=== PATIENT | male | born 1960 | race Hispanic/Latino ===

== ENCOUNTER 2024-06-10 21:17 | Emergency (ER) | payer BC ==
[~2024-06-10] VITALS: Ht 185.4 cm; Wt 97.5 kg
--- NOTE | 2024-06-10 21:25 | NUR ---
UA CUP PROVIDED
--- NOTE | 2024-06-10 21:32 | ERN ---
ED Note History of Present Illness Stated Complaint: LOWER BACK PAIN Time Seen by MD: 21:18 Time Seen by Midlevel: 21:20 Dictation: Mr. Jackson is a 64 year old gentleman with no reported chronic health issues known to the emergency department this evening for evaluation of right flank pain. He states 20 minutes ago he was playing pool and he had sudden onset of a right low back/flank pain. He rates the pain 4/10. He states there is no worsening of pain with position change/movement. He states he had a similar episode a few days ago albeit less severe. At that time he took Tylenol and symptoms resolved. He denies having fever, chills, shortness of breath, cough, chest pain, palpitations, abdominal pain, nausea, vomiting, diarrhea, dysuria, hematuria, headache or dizziness. He does state he has a history of a lung surgery; states they removed lower lobe due to trauma/blood clot. 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 EYES: Patient denies any visual symptoms. EARS, NOSE, AND THROAT: No difficulties with hearing. No symptoms of rhinitis or sore throat. CARDIOVASCULAR: Patient denies chest pains, palpitations, orthopnea and paroxysmal nocturnal dyspnea. RESPIRATORY: No dyspnea on exertion, no wheezing or cough. GI: No nausea, vomiting, diarrhea, constipation, abdominal pain, hematochezia or melena. : No urinary hesitancy or dribbling. No nocturia or urinary frequency. No abnormal urethral discharge. Denies hematuria. Reports right flank pain MUSCULOSKELETAL: Reports right low back pain NEUROLOGIC: No chronic headaches, no seizures. Patient denies numbness, tingling or weakness. PSYCHIATRIC: Patient denies problems with mood disturbance. No problems with anxiety. ENDOCRINE: No excessive urination or excessive thirst. DERMATOLOGIC: Patient denies any rashes or skin changes. Initial Vital Sign VS Vital Signs Date Time Temp Pulse Resp B/P (MAP) Pulse Ox O2 Delivery O2 Flow Rate FiO2 06/10/24 21:17 97.9 70 20 134/97 98 Room Air 06/10/24 21:47 0 21 Physical Exam Dictation Vital signs: Reviewed. Afebrile Constitutional: No acute distress. Non-toxic appearing. Head/Face: Normocephalic, atraumatic. Eyes: Periorbital areas with no swelling, redness, or edema. Lids and lashes are normal. Conjunctival injection is absent. Sclera anicteric. Pupils equal, round, reactive to light. ENT: Pinnas intact and no signs of trauma or erythema. Ear canals clear and no discharge. TMs no erythema. No nasal discharge or bleeding noted. Oropharynx with no exudate, redness, swelling, masses, exudates, or evidence of obstruction. Uvula midline. Mucous membranes moist. Neck: Trachea midline, no masses palpated, and no cervical lymphadenopathy. No swelling. Supple, full range of motion. Chest/Axilla: No tenderness, no crepitus, no paradoxical movement, no retractions.BP 134/97 Respiratory: Respirations even and unlabored. Lung sounds clear; no wheezes, rales or rhonchi. Gastrointestinal: Inspection is normal. No distention is appreciated. Bowel sounds are normal. No mass or organomegaly . There is no tenderness. No rebound. No rigidity. No voluntary or involuntary guarding. No Soni's sign. : + Right CVA tenderness. Pain 4/10. Unable to urinate at this time. Neurological: Normal speech, gross motor function intact, gross sensory function intact. No focal weakness/Paresthesia. Musculoskeletal/Extremities: All extremities have full range of motion, no pain or tenderness on palpation. Symmetric pulses. Integumentary: Intact. Skin is normal color, warm and dry. Cap refill less than 2 seconds. Results (Laboratory/Radiology) Laboratory/Radiology Laboratory Tests Test 06/10/24 21:35 06/10/24 21:42 White Blood Count 6.9 K/uL (4.8-10.8) Red Blood Count 5.24 MIL/uL (4.50-6.20) Hemoglobin 14.8 g/dL (14.0-18.0) Hematocrit 45.2 % (42-54) Mean Corpuscular Volume 86.3 fL (79-99) Mean Corpuscular Hemoglobin 28.2 pg (27.0-33.0) Mean Corpuscular Hemoglobin Concent 32.7 g/dL (32.0-36.0) Red Cell Distribution Width 12.8 % (11.0-15.5) Platelet Count 253 K/uL (130-400) Mean Platelet Volume 10.2 fL (7.5-10.5) Immature Granulocyte % (Auto) 0.3 % (0-1) Neutrophils (%) (Auto) 40.7 % (40.0-77.0) Lymphocytes (%) (Auto) 46.4 % (21.0-51.0) Monocytes (%) (Auto) 9.0 % (3.0-13.0) Eosinophils (%) (Auto) 2.9 % (0.0-8.0) Basophils (%) (Auto) 0.7 % (0.0-5.0) Neutrophils # (Auto) 2.8 K/uL (1.8-7.7) Lymphocytes # (Auto) 3.2 K/uL (1.0-4.8) Monocytes # (Auto) 0.6 K/uL (0.1-1.0) Eosinophils # (Auto) 0.20 K/uL (0.00-0.70) Basophils # (Auto) 0.05 K/uL (0.00-0.20) Absolute Immature Granulocyte (auto 0.02 K/uL (0-1) Nucleated Red Blood Cells 0.0 % (0.0-0.19) Sodium Level 136 mmol/L (136-145) Potassium Level 3.7 mmol/L (3.5-5.1) Chloride Level 99 mmol/L (101-111) L Carbon Dioxide Level 30 mmol/L (21-32) Blood Urea Nitrogen 16 mg/dL (7-18) Creatinine 1.1 mg/dL (0.5-1.3) Glomerular Filtration Rate Calc 75 mL/min (>90) Random Glucose 116 mg/dL (70-105) H Total Calcium 8.4 mg/dL (8.5-10.1) L Urine Color LIGHT-YELLOW (YELLOW) Urine Appearance CLOUDY (CLEAR) H Urine pH 5.0 (5.0-8.0) Urine Specific Fidelity 1.023 (1.001-1.031) Urine Protein 10 mg/dL (NEGATIVE) H Urine Glucose (UA) NEGATIVE mg/dL (NEGATIVE) Urine Ketones NEGATIVE mg/dL (NEGATIVE) Urine Occult Blood LARGE (NEGATIVE) H Urine Nitrate NEGATIVE (NEGATIVE) Urine Bilirubin NEGATIVE mg/dL (NEGATIVE) Urine Urobilinogen 0.2 mg/dL (0.2-1.0) Urine Leukocyte Esterase NEGATIVE James/uL Urine RBC TNTC /HPF (0-1) H Urine WBC None /HPF (0-1) Urine Bacteria None /HPF (None Seen) Labs Reviewed?: Yes CT Scan Comment: PATIENT: MARGARET JACKSON MR#: [id number] : 1960 SEX: M AGE: 64 LOCATION: [facility] ORDER 26 STATUS: [facility] REPORT#: [id number] SERVICE 25 REASON: right flank pain, possible kidney stone ORDERING PHYSICIAN: PEDRO PABLO SOUSA NP PROCEDURE: ABD PEL WO - CT ABDOMEN/PELVIS W/O CONTRAST CT ABDOMEN/PELVIS W/O CONTRAST HISTORY: Right flank pain there are bibasilar linear atelectasis. COMPARISON: None TECHNIQUE: Multiple sequential axial images of the abdomen and pelvis were obtained from the dome of the diaphragm through symphysis pubis. Patient was not given contrast through intravenous route. Oral contrast was not given. FINDINGS: No pleural effusion is seen bilaterally. There is no evidence of parenchymal disease or pulmonary nodule of the visualized lower lungs. Degenerative changes of the thoracolumbar spine are present. The heart is not enlarged. Liver measures 19 cm. The liver, spleen, adrenal glands and pancreas are unremarkable. No hydronephrosis is seen on the left. There is mild right hydronephrosis with 7 mm renal stone in the right proximal mid ureter. There is diverticulosis. Fecal material is seen in the colon. There are normal size retroperitoneal and mesenteric lymph nodes. No ascites is seen. Atherosclerotic changes are present. Appendix is not well seen limiting evaluation. Pelvic sidewalls are symmetric bilaterally. Bladder is poorly distended. IMPRESSION: 1. There is mild right hydronephrosis with 7 mm renal stone in the right proximal mid ureter. There is diverticulosis. CT was performed with one or more following dose reduction techniques: automated exposure control, adjustment of the mA and kv according to patient's size, or use of a iterative reconstruction technique. DICTATED BY: SHERRI HELTON MD DATE: 06/10/242221 ELECTRONICALLY SIGNED BY: SHERRI HELTON MD DATE: 06/10/242230 ED Course ED Course Orders Procedure Category Date Status Time Urinalysis Profile LAB 06/10/24 Complete : Cbc With Differential LAB 06/10/24 Complete : Basic Metabolic Panel LAB 06/10/24 Complete 21: Ct Abdomen/Pelvis W/O CT 06/10/24 Resulted Contrast 21: Ondansetron Odt 4mg PHA 06/10/24 Complete Tab (Zofran 4mg Odt) 21:30 Hydrocodone/Apap PHA 06/10/24 Complete 5/325 ([place] 5/325mg) 21:30 Current Medications Medications (Trade) Dose Ordered Sig/Lenny Route PRN Reason Start Time Stop Time Status Last Admin Dose Admin Acetaminophen/ Hydrocodone Bitart (NORco 5/325MG) 1 tab ONCE ONCE PO 06/10/24 21:30 06/10/24 21:32 DC 06/10/24 22:49 Ondansetron HCl (zoFRAN 4MG ODT) 4 mg ONCE ONCE SL 06/10/24 21:30 06/10/24 21:32 DC 06/10/24 22:49 Vital Signs Date Time Temp Pulse Resp B/P (MAP) Pulse Ox O2 Delivery O2 Flow Rate FiO2 06/10/24 21:47 97.9 70 20 134/97 98 Room Air* 0 21 06/10/24 21:17 97.9 70 20 134/97 98 Room Air He arrived to the emergency department with right flank pain positive CVA tenderness, laboratory findings as noted below. No elevation of WBCs. No electrolyte derangement. UA positive for blood and protein. CT scan of the abdomen and pelvis revealed 7 mm stone right proximal mid ureter with mild hydronephrosis. He states pain is mild and declines admission to hospital. He received doses Flomax, Zofran, and [place]. He was advised he will need to follow up with urologist. He was provided with urine strainer. Medical Decision Making MDM MDM: Differential diagnosis: UTI, pyelonephritis, kidney stone Rationale: Tests considered and ordered secondary to shared decision making include: Lab, CT Previous outside records reviewed: Old ER visits. Risk of complication and/or morbidity or mortality of patient management: None Medications-Per medication reconciliation Need for hospitalization: Patient does not meet criteria for hospitalization. Need for emergency major/minor surgery: No There are no social concerns with this patient. Prescription drug management: Flomax, ibuprofen, Zofran Prescriptions will include symptomatic care Patient's prior external medical records from other ER visits were reviewed by me as indicated. Prior testing and results from previous visits were reviewed. Prior tests were taken into account with medical decision making and resource utilization, independent historian/historians were used to obtain complete medical history. I independently interpreted the test that were performed, results were reviewed by me and considered findings on radiology if ordered. Medical management and examination interpretation discussions were had by me with other qualified healthcare professionals as indicated for the patient's care. DX & DISP Disposition: Discharge Departure Impression: Primary Impression: Kidney stone on right side Additional Impression: Hydronephrosis Condition: Stable Scripts Ondansetron (Ondansetron Odt) 4 Mg Tab.rapdis 4 MG PO Q6HPRN PRN for nausea, #15 TAB 0 Refills Prov: PEDRO PABLO SOUSA NP 06/10/24 Ibuprofen (Ibuprofen) 600 Mg Tablet 600 MG PO Q6H PRN for PAIN, #15 TAB 0 Refills Prov: PEDRO PABLO SOUSA NP 06/10/24 Tamsulosin HCl (Flomax) 0.4 Mg Cap.er.24h 0.4 MG PO DAILY PRN for francisca, #10 CAPSULE.DR 0 Refills Prov: PEDRO PABLO SOUSA NP 06/10/24 Additional Instructions: Rest. Drink plenty of fluids. Take Flomax 0.4 mg daily. May take ibuprofen every 6 hours as needed for discomfort. Zofran sublingual every 6 hours as needed for nausea. Strain all urine. You will need to follow up with urologist; call in a.m. for appointment. Return to the emergency department for any worsening of symptoms or concerns. Referrals: RAE BAUTISTA MD Time of Disposition: 22:56 PEDRO PABLO SOUSA NP Jun 10, 2024 21:32
[2024-06-10 21:47] VITALS: BP 134/97; PULSE 70; RESP 20; TEMP 97.8; O2SAT 98
[2024-06-10 21:48] LABS: BASOPHILS # (AUTO) 0.05 K/uL (0.00-0.20); BASOPHILS % (AUTO) 0.7 % (0.0-5.0); EOSINOPHILS % (AUTO) 2.9 % (0.0-8.0); HEMATOCRIT 45.2 % (42-54); IMMATURE GRANULOCYTE ABSOLUTE 0.02 K/uL (0-1); LYMPHOCYTES # (AUTO) 3.2 K/uL (1.0-4.8); LYMPHOCYTES % (AUTO) 46.4 % (21.0-51.0); MEAN CORPUSCULAR HEMOGLOBIN 28.2 pg (27.0-33.0); MEAN CORPUSCULAR HGB CONC 32.7 g/dL (32.0-36.0); MEAN CORPUSCULAR VOLUME 86.3 fL (79-99); MONOCYTES # (AUTO) 0.6 K/uL (0.1-1.0); NEUTROPHILS # (AUTO) 2.8 K/uL (1.8-7.7); NEUTROPHILS % (AUTO) 40.7 % (40.0-77.0); PLATELET COUNT (AUTO) 253 K/uL (130-400); RED BLOOD CELL COUNT(AUTO) 5.24 MIL/uL (4.50-6.20); RED CELL DISTRIBUTION WIDTH 12.8 % (11.0-15.5); WHITE BLOOD COUNT (AUTO) 6.9 K/uL (4.8-10.8)
[2024-06-10 21:50] LABS: APPEARANCE,URINE CLOUDY (CLEAR); BILIRUBIN,URINE NEGATIVE (NEGATIVE); COLOR,URINE LIGHT-YELLOW (YELLOW); GLUCOSE, URINE (UA) NEGATIVE (NEGATIVE); KETONES,URINE NEGATIVE (NEGATIVE); LEUKOCYTE ESTERASE ,URINE NEGATIVE Leu/uL (NEGATIVE); NITRATE,URINE NEGATIVE (NEGATIVE); OCCULT BLOOD,URINE LARGE (NEGATIVE); PROTEIN,URINE 10 mg/dL (NEGATIVE); UROBILINOGEN,URINE 0.2 mg/dL (0.2-1.0)
[2024-06-10 21:52] LABS: ADD UA MICROSCOPIC YES
[2024-06-10 21:53] LABS: MUCUS,URINE RARE LPF (None Seen); RBC,URINE TNTC /HPF (0-1)
[2024-06-10 21:58] LABS: CREATININE 1.1 mg/dL (0.5-1.3); POTASSIUM 3.7 mmol/L (3.5-5.1)
[2024-06-10] MEDS: HYDROcodone/APAP 5/325 1 TAB TABLET PO ONE (22:19)
[2024-06-10] MEDS: ondanSETRON ODT 4MG TAB SL ONE (22:19)
--- NOTE | 2024-06-10 22:31 | HMCIMG ---
CT ABDOMEN/PELVIS W/O CONTRAST HISTORY: Right flank pain there are bibasilar linear atelectasis. COMPARISON: None TECHNIQUE: Multiple sequential axial images of the abdomen and pelvis were obtained from the dome of the diaphragm through symphysis pubis. Patient was not given contrast through intravenous route. Oral contrast was not given. FINDINGS: No pleural effusion is seen bilaterally. There is no evidence of parenchymal disease or pulmonary nodule of the visualized lower lungs. Degenerative changes of the thoracolumbar spine are present. The heart is not enlarged. Liver measures 19 cm. The liver, spleen, adrenal glands and pancreas are unremarkable. No hydronephrosis is seen on the left. There is mild right hydronephrosis with 7 mm renal stone in the right proximal mid ureter. There is diverticulosis. Fecal material is seen in the colon. There are normal size retroperitoneal and mesenteric lymph nodes. No ascites is seen. Atherosclerotic changes are present. Appendix is not well seen limiting evaluation. Pelvic sidewalls are symmetric bilaterally. Bladder is poorly distended. IMPRESSION: 1. There is mild right hydronephrosis with 7 mm renal stone in the right proximal mid ureter. There is diverticulosis. CT was performed with one or more following dose reduction techniques: automated exposure control, adjustment of the mA and kv according to patient's size, or use of a iterative reconstruction technique.
[2024-06-10] MEDS ORDERED: IBUP-2070 PO (22:55)
[2024-06-10] MEDS ORDERED: TAMS-1 PO (22:55)
[2024-06-10] MEDS ORDERED: ONDA-243 PO (22:55)
[2024-06-10] MEDS: tamSULOsin HCL 0.4 MG CAP.ER.24H PO ONE (22:56)
== END 2024-06-10 22:58 | disposition home or self-care (01) ==
LOC: EDH 21:17
DX: N13.2 Hydronephrosis with renal and ureteral calculous obstruction (principal); Z88.0 Allergy status to penicillin; Z88.5 Allergy status to narcotic agent; Z88.6 Allergy status to analgesic agent
CPT/HCPCS: 36415; 74176; 80048; 81001; 85025; 99284

== ENCOUNTER 2024-06-26 19:57 | Emergency (ER) | payer SELFPAY ==
[~2024-06-26] VITALS: Ht 185.4 cm; Wt 93.0 kg
[~2024-06-26 19:57] MED LIST: IBUP-2070 PO; ONDA-243 PO; TAMS-55 PO
--- NOTE | 2024-06-26 20:06 | NUR ---
UA CUP PROVIDED
[2024-06-26] MEDS: ondanSETRON 4MG INJ IVP ONE (20:47)
[2024-06-26] MEDS: 0.9%NACL 1000ML 1,000 ML IV ONE (20:47)
[2024-06-26] MEDS: morPHINE 4 MG SYG IVP ONE (20:48)
[2024-06-26 20:52] LABS: BASOPHILS # (AUTO) 0.05 K/uL (0.00-0.20); BASOPHILS % (AUTO) 0.6 % (0.0-5.0); EOSINOPHILS # (AUTO) 0.14 K/uL (0.00-0.70); EOSINOPHILS % (AUTO) 1.7 % (0.0-8.0); HEMATOCRIT 47.4 % (42-54); IMMATURE GRANULOCYTE ABSOLUTE 0.02 K/uL (0-1); LYMPHOCYTES # (AUTO) 2.6 K/uL (1.0-4.8); LYMPHOCYTES % (AUTO) 32.6 % (21.0-51.0); MEAN CORPUSCULAR HEMOGLOBIN 28.6 pg (27.0-33.0); MEAN CORPUSCULAR HGB CONC 33.1 g/dL (32.0-36.0); MEAN CORPUSCULAR VOLUME 86.3 fL (79-99); MONOCYTES # (AUTO) 0.6 K/uL (0.1-1.0); MONOCYTES % (AUTO) 7.4 % (3.0-13.0); NEUTROPHILS # (AUTO) 4.6 K/uL (1.8-7.7); NEUTROPHILS % (AUTO) 57.5 % (40.0-77.0); PLATELET COUNT (AUTO) 232 K/uL (130-400); RED BLOOD CELL COUNT(AUTO) 5.49 MIL/uL (4.50-6.20); RED CELL DISTRIBUTION WIDTH 12.9 % (11.0-15.5)
[2024-06-26 20:54] LABS: APPEARANCE,URINE CLEAR (CLEAR); BILIRUBIN,URINE NEGATIVE (NEGATIVE); COLOR,URINE YELLOW (YELLOW); GLUCOSE, URINE (UA) NEGATIVE (NEGATIVE); KETONES,URINE NEGATIVE (NEGATIVE); LEUKOCYTE ESTERASE ,URINE NEGATIVE Leu/uL (NEGATIVE); NITRATE,URINE NEGATIVE (NEGATIVE); OCCULT BLOOD,URINE SMALL (NEGATIVE); PROTEIN,URINE 30 mg/dL (NEGATIVE)
[2024-06-26 20:59] LABS: CREATININE 1.4 mg/dL (0.5-1.3); POTASSIUM 3.9 mmol/L (3.5-5.1)
[2024-06-26 21:01] LABS: ADD UA MICROSCOPIC YES
[2024-06-26 21:11] LABS: MUCUS,URINE RARE LPF (None Seen); OTHER CASTS, URINE 1 /LPF (None Seen); SQUAMOUS EPITHELIAL CELL,UR RARE /HPF (0-2)
[2024-06-26] MEDS: morPHINE 4 MG SYG ONE (21:13)
[2024-06-26 21:24] VITALS: TEMP 98.1
--- NOTE | 2024-06-26 21:57 | HMCIMG ---
CT ABDOMEN/PELVIS W/O CONTRAST CLINICAL HISTORY: right flank pain COMPARISON: None TECHNIQUE: Sequential axial images of abdomen and pelvis without contrast and with sagittal and coronal reconstructions. CT was performed with one or more of the following dose reduction techniques: automated exposure control, adjustment of the mA and/or kV according to patient size, or use of iterative reconstruction technique FINDINGS: There is mild dependent atelectasis lung bases. The liver spleen gallbladder pancreas and adrenal glands and left kidney are unremarkable. There is minimal right hydroureteronephrosis secondary to a right ureterovesicular junction 3 mm calculus. There is no identified bowel junction. There are multiple sigmoid colon diverticuli with no acute inflammatory changes. There is no free air or free fluid. There is no bulky abdominal or retroperitoneal lymphadenopathy. The prostate gland is unremarkable. The bony structures demonstrate mild diffuse degenerative change of the spine is mild calcified atherosclerotic vascular disease of the aorta. IMPRESSION: Minimal right hydroureteronephrosis secondary to a 3 mm right ureterovesicular junction calculus. Severe sigmoid diverticulosis.
[2024-06-26] MEDS: morPHINE 2 MG SYG IVP ONE (22:18)
[2024-06-26 22:40] VITALS: BP 142/71; PULSE 74; RESP 16; O2SAT 97
[2024-06-26] MEDS ORDERED: TAMS-55 PO (22:49)
[2024-06-26] MEDS ORDERED: HYDR-4060 PO (22:49)
--- NOTE | 2024-06-26 22:50 | ERN ---
ED Note History of Present Illness Stated Complaint: BACK PAIN Chief Complaint: Flank Pain Time Seen by MD: 20:01 Time Seen by Midlevel: 20:01 Dictation: The patient is a 64-year-old male with a history of kidney stones who presents to the emergency department with complaints of right flank pain onset today. Patient denies any nausea, vomiting, diarrhea or fevers. Patient reports he was seen here sent him last month and was diagnosed with kidney stones. Has not follow up with Urology. Patient was not aware that he was supposed to follow up. Finished a dose of Flomax. Allergies: Coded Allergies: Penicillins (Unverified Allergy, Unknown, 06/10/24) aspirin (Unverified Allergy, Unknown, 06/10/24) codeine (Unverified Allergy, Unknown, 06/10/24) Home Meds Active Scripts Hydrocodone/Acetaminophen (Hydrocodon-Acetaminophen 5-325) 5 Mg-325 Mg Tablet, 1 TAB PO [id number] PRN for pain for 5 Days, #10 TAB 0 Refills Prov:ZULEIMA BRIGHT 06/26/24 Tamsulosin HCl (Flomax) 0.4 Mg Cap.er.24h, 0.4 MG PO DAILY, #30 CAPSULE. Prov:ZULEIMA BRIGHT 06/26/24 Ondansetron (Ondansetron Odt) 4 Mg Tab.rapdis, 4 MG PO Q6HPRN PRN for nausea, #15 TAB 0 Refills Prov:PEDRO PABLO SOUSA NP 06/10/24 Ibuprofen (Ibuprofen) 600 Mg Tablet, 600 MG PO Q6H PRN for PAIN, #15 TAB 0 Refills Prov:PEDRO PABLO SOUSA NP 06/10/24 Tamsulosin HCl (Flomax) 0.4 Mg Cap.er.24h, 0.4 MG PO DAILY PRN for francisca, #10 CAP YASMIN.DR 0 Refills Prov:PEDRO PABLO SOUSA NP 06/10/24 Past Medical History Past Medical History: No Pertinent History Surgical History: Other Surgical History Other: LEFT LOWER LOBECTOMY DUE TO TRAUMA RN Note Reviewed/Agreed w/PFSH: Yes Review of System Dictation Constitutional: Negative for fever,chills, and weight loss Eyes: Negative for injury, pain,redness, and discharge ENT: Negative for injury,pain or swelling Cardiovascular: Negative for chest pain, palpitations, and edema Respiratory: Negative for shortness of breath, cough, and wheezing, Abdomen/GI: Negative for abdominal pain, nausea, vomiting, diarrhea, and constipation Back: Negative for injury and pain positive for right flank pain : Negative for injury, bleeding and discharge MS/Extremity: Negative for injury and deformity Skin: Negative for rash, and discoloration Neuro: Negative for headache, weakness, numbness, tingling, and seizure Psych: Negative for suicide ideation, homicidal ideation, and hallucinations Initial Vital Sign VS Vital Signs Date Time Temp Pulse Resp B/P (MAP) Pulse Ox O2 Delivery O2 Flow Rate FiO2 06/26/24 19:58 98.1 72 20 151/89 98 Room Air 06/26/24 21:24 0 21 Physical Exam Dictation Vital Signs reviewed General Appearance: Alert, oriented x 3, no acute distress, well developed, nourished. Head and Face: non-traumatic. Eyes: PERRL, pink conjunctivas, eyelid no trauma, anterior chamber with arcus senilis. Ears: Pinnas intact and no signs of trauma or erythema ear canals clear and no discharge TM no erythema Nose: No discharge, no bleeding. Oropharynx: Mouth normal, tongue pink. pharynx clear,no erythema, tonsils no exudates, no abscesses noted, mucous membrane moist Neck: Supple, non-tender, no thyromegaly, no masses, no JVD, no bruits Breast:Deferred Chest:No tenderness, no crepitus, no paradoxical movement, no retractions Lungs:Clear, well-ventilated, symmetric, no rales, no wheezing, no rhonchi, no stridor, good breath sounds bilaterally Heart: Regular rate, regular rhythm, no murmur, no gallops Vascular: no peripheral edema, Abdomen: Soft, positive bowel sounds, nondistended, no guarding, nontender, no rebound, no masses no hepatomegaly, no splenomegaly, no Soni's sign, no hernias. Rectal: Deferred Genital: Deferred Neurological: Normal speech, motor function intact, sensory function intact Musculoskeletal: Neck nontender, full range of motion, back nontender, full range of motion, Extremities: nontender, full range of motion Skin: Color pink, dry, no turgor, no rash, no lacerations, no abrasions, no contusions. Lymphatic: Deferred Results (Laboratory/Radiology) Laboratory/Radiology Laboratory Tests Test 06/26/24 20:44 White Blood Count 8.0 K/uL (4.8-10.8) Red Blood Count 5.49 MIL/uL (4.50-6.20) Hemoglobin 15.7 g/dL (14.0-18.0) Hematocrit 47.4 % (42-54) Mean Corpuscular Volume 86.3 fL (79-99) Mean Corpuscular Hemoglobin 28.6 pg (27.0-33.0) Mean Corpuscular Hemoglobin Concent 33.1 g/dL (32.0-36.0) Red Cell Distribution Width 12.9 % (11.0-15.5) Platelet Count 232 K/uL (130-400) Mean Platelet Volume 9.9 fL (7.5-10.5) Immature Granulocyte % (Auto) 0.2 % (0-1) Neutrophils (%) (Auto) 57.5 % (40.0-77.0) Lymphocytes (%) (Auto) 32.6 % (21.0-51.0) Monocytes (%) (Auto) 7.4 % (3.0-13.0) Eosinophils (%) (Auto) 1.7 % (0.0-8.0) Basophils (%) (Auto) 0.6 % (0.0-5.0) Neutrophils # (Auto) 4.6 K/uL (1.8-7.7) Lymphocytes # (Auto) 2.6 K/uL (1.0-4.8) Monocytes # (Auto) 0.6 K/uL (0.1-1.0) Eosinophils # (Auto) 0.14 K/uL (0.00-0.70) Basophils # (Auto) 0.05 K/uL (0.00-0.20) Absolute Immature Granulocyte (auto 0.02 K/uL (0-1) Nucleated Red Blood Cells 0.0 % (0.0-0.19) Urine Color YELLOW (YELLOW) Urine Appearance CLEAR (CLEAR) Urine pH 6.0 (5.0-8.0) Urine Specific [place] 1.034 (1.001-1.031) Urine Protein 30 mg/dL (NEGATIVE) H Urine Glucose (UA) NEGATIVE mg/dL (NEGATIVE) Urine Ketones NEGATIVE mg/dL (NEGATIVE) Urine Occult Blood SMALL (NEGATIVE) H Urine Nitrate NEGATIVE (NEGATIVE) Urine Bilirubin NEGATIVE mg/dL (NEGATIVE) Urine Urobilinogen 4.0 mg/dL (0.2-1.0) H Urine Leukocyte Esterase NEGATIVE James/uL Urine RBC 6-10 /HPF (0-1) H Urine WBC 2-5 /HPF (0-1) H Urine Squamous Epithelial Cells RARE /HPF (0-2) Urine Bacteria None /HPF (None Seen) Urine Other Casts 1 /LPF (None Seen) Sodium Level 139 mmol/L (136-145) Potassium Level 3.9 mmol/L (3.5-5.1) Chloride Level 101 mmol/L (101-111) Carbon Dioxide Level 29 mmol/L (21-32) Blood Urea Nitrogen 19 mg/dL (7-18) H Creatinine 1.4 mg/dL (0.5-1.3) H Glomerular Filtration Rate Calc 56 mL/min (>90) Random Glucose 138 mg/dL (70-105) H Total Calcium 8.7 mg/dL (8.5-10.1) REASON: right flank pain ORDERING PHYSICIAN: ZULEIMA BRIGHT PROCEDURE: ABD PEL WO - CT ABDOMEN/PELVIS W/O CONTRAST CT ABDOMEN/PELVIS W/O CONTRAST CLINICAL HISTORY: right flank pain COMPARISON: None TECHNIQUE: Sequential axial images of abdomen and pelvis without contrast and with sagittal and coronal reconstructions. CT was performed with one or more of the following dose reduction techniques: automated exposure control, adjustment of the mA and/or kV according to patient size, or use of iterative reconstruction technique FINDINGS: There is mild dependent atelectasis lung bases. The liver spleen gallbladder pancreas and adrenal glands and left kidney are unremarkable. There is minimal right hydroureteronephrosis secondary to a right ureterovesicular junction 3 mm calculus. There is no identified bowel junction. There are multiple sigmoid colon diverticuli with no acute inflammatory changes. There is no free air or free fluid. There is no bulky abdominal or retroperitoneal lymphadenopathy. The prostate gland is unremarkable. The bony structures demonstrate mild diffuse degenerative change of the spine is mild calcified atherosclerotic vascular disease of the aorta. IMPRESSION: Minimal right hydroureteronephrosis secondary to a 3 mm right ureterovesicular junction calculus. Severe sigmoid diverticulosis. Labs Reviewed?: Yes ED Course ED Course Orders Procedure Category Date Status Time Cbc With Differential LAB 06/26/24 Complete 20:29 Urinalysis Profile LAB 06/26/24 Complete 20:29 0.9%Nacl 1000ml (Ns PHA 06/26/24 Complete 1000ml) 20:30 Morphine 4mg Syg PHA 06/26/24 Complete (Morphine 4mg Syg) 20:30 Basic Metabolic Panel LAB 06/26/24 Complete 20:29 Ondansetron 4mg Inj PHA 06/26/24 Complete (Zofran 4mg Inj) 20:30 Morphine 4mg Syg PHA 06/26/24 Complete (Morphine 4mg Syg) 20:46 Ct Abdomen/Pelvis W/O CT 06/26/24 Resulted Contrast 21:02 Morphine 2mg Syg PHA 06/26/24 Complete (Morphine 2mg Syg) 22:30 Current Medications Medications (Trade) Dose Ordered Sig/Lenny Route PRN Reason Start Time Stop Time Status Last Admin Dose Admin Morphine Sulfate (morPHINE 2MG SYG) 2 mg ONCE ONCE IVP 06/26/24 22:30 06/26/24 22:31 DC 06/26/24 22:18 Morphine Sulfate (morPHINE 4MG SYG) 4 mg ONCE ONCE IVP 06/26/24 20:30 06/26/24 20:46 DC 06/26/24 20:48 Morphine Sulfate (morPHINE 4MG SYG) 4 mg STK-MED ONCE .ROUTE 06/26/24 20:46 06/26/24 20:47 DC Ondansetron HCl (zoFRAN 4MG INJ) 4 mg ONCE ONCE IVP 06/26/24 20:30 06/26/24 20:33 DC 06/26/24 20:47 Sodium Chloride 1,000 ml @ 0 mls/hr ONCE ONCE IV 06/26/24 20:30 06/26/24 20:33 DC 06/26/24 20:47 Vital Signs Date Time Temp Pulse Resp B/P (MAP) Pulse Ox O2 Delivery O2 Flow Rate FiO2 06/26/24 22:40 74 16 142/71 97 Room Air* 0 21 06/26/24 21:24 98.1 78 16 137/62 97 Room Air* 0 21 06/26/24 19:58 98.1 72 20 151/89 98 Room Air Medical Decision Making MDM The patient is a 64-year-old male with a history of kidney stones who presents to the emergency department with complaints of right flank pain onset today. Patient denies any nausea, vomiting, diarrhea or fevers. Patient reports he was seen here sent him last month and was diagnosed with kidney stones. Has not follow up with Urology. Patient was not aware that he was supposed to follow up. Finished a dose of Flomax. CBC showed no leukocytosis, no anemia, chemistry showed creatinine of 1.4, slightly elevated from previous admissions. Patient received a L of fluids in ER. Urinalysis with no leukocyte esterase or nitrites. CT revealed minimal right hydroureteronephrosis secondary to 3 mm right ureterovesicular junction calculus. Patient was giving morphine in ER. Patient refused Toradol although patient reports he takes ibuprofen at home. Patient in no acute distress, stable vital signs. We will be discharged to follow up with Urology. Patient instructed on the importance to follow up. Differential diagnosis: Kidney stones, UTI, pyelonephritis Need for hospitalization: Patient does not meet criteria for hospitalization. There are no social concerns with this patient. DX & DISP Disposition: Discharge Departure Impression: Primary Impression: Kidney stone on right side Additional Impression: Hydronephrosis Condition: Stable Scripts Hydrocodone/Acetaminophen (Hydrocodon-Acetaminophen 5-325) 5 Mg-325 Mg Tablet 1 TAB PO [id number] PRN for pain for 5 Days, #10 TAB 0 Refills Prov: ZULEIMA BRIGHT 06/26/24 Tamsulosin HCl (Flomax) 0.4 Mg Cap.er.24h 0.4 MG PO DAILY, #30 CAPSULE. Prov: ZULEIMA BRIGHT 06/26/24 Additional Instructions: It is very important that you follow up with Urology. Take medications as prescribed. If symptoms worsen please return to ER. FOLLOW-UP WITH PRIMARY CARE PROVIDER IN 1 TO 2 DAYS. TAKE MEDICATIONS DIRECTED HERE IN THE EMERGENCY ROOM. OKAY TO CONTINUE HOME MEDICATIONS UNLESS OTHERWISE DISCUSSED DURING YOUR VISIT IN THE EMERGENCY ROOM TODAY. RETURN TO YOUR NEAREST EMERGENCY ROOM IF SYMPTOMS WORSEN OR IF THERE IS NO IMPROVEMENT. CALL 911 IF YOU NEED IMMEDIATE ASSISTANCE. TAKE TYLENOL OR MOTRIN [id number] NEEDED AND IF NO CONTRAINDICATIONS ARE PRESENT. INCREASE ORAL HYDRATION. A WOUND CULTURE OR URINE CULTURE WAS ORDERED HERE IN THE EMERGENCY ROOM DEPARTMENT PLEASE FOLLOW-UP WITH PRIMARY CARE PROVIDER AND ADVISE THEM TO GET REPEAT PORTS FROM OUR FACILITY. IF YOU HAD ANY DWIGHT WRAP/SPLINTS THAT WERE APPLIED HERE, PLEASE DO NOT REMOVE THEM UNTIL YOU SEE YOUR PRIMARY CARE OR SPECIALTY. Referrals: EZIO SCHWARZ MD (PCP) RENNY ERIC MD Time of Disposition: 22:48 I have reviewed the case, and I agree with, Diagnosis and Plan ZULEIMA BRIGHT [facility] Jun 26, 2024 22:50
== END 2024-06-26 23:04 | disposition home or self-care (01) ==
LOC: EDH 19:57
DX: N13.2 Hydronephrosis with renal and ureteral calculous obstruction (principal); K57.30 Diverticulosis of large intestine without perforation or abscess without bleeding; Z88.0 Allergy status to penicillin; Z88.5 Allergy status to narcotic agent; Z88.6 Allergy status to analgesic agent
CPT/HCPCS: 99285; 74176; 96374; 96361; 96375; 80048; 85025; 81001; 36415; 96376; J2270 ×2; J7030; J2405